=== PATIENT | male | born 1975 | race Two or more races ===

== ENCOUNTER 2025-01-27 11:56 | Inpatient (IN) | payer OTHER ==
[~2025-01-27] VITALS: Ht 167.6 cm; Wt 73.2 kg
--- NOTE | 2025-01-27 12:10 | ECG ---
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
--- NOTE | 2025-01-27 12:18 | ED.PDOC ---
History of Present Illness HPI Comments This is a 49 year old male presenting to the ED with chief complaint of headache, facial tingling, chest pressure. Patient reports that he has been experiencing a right face and headache with associated neck pain, left sided tingling, and lightheadedness for the past week. Patient relays that last week his mother had , causing a lot of stress on himself at this time. Patient denies any numbness, weakness, fall, injury. pt also reports a pressure over the chest Chief Complaint: Headache Time Seen by MD: 12:17 Reviewed Notes: Nurses Notes, Medications, Allergies Information Source: Patient Mode of Arrival: Ambulatory Severity: Moderate Timing: Weeks Duration: Since onset Prehospital treatment: None Past Medical History PAST MEDICAL HISTORY: Denies Surgical History: Denies all surgeries Family History Family History: Reviewed,noncontributory to illness Social History Smoker: Non-Smoker Alcohol: Occasionally Drugs: Denies Drug Use Lives In: Home Constitutional: denies: chills, diaphoresis, fatigue, fever, malaise, sweats, weakness, others EENTM: denies: blurred vision, double vision, ear bleeding, ear discharge, ear drainage, ear pain, ear ringing, eye pain, eye redness, hearing loss, mouth pain, mouth swelling, nasal discharge, nose bleeding, nose congestion, nose pain, photophobia, tearing, throat pain, throat swelling, voice changes, others Respiratory: denies: cough, hemoptysis, orthopnea, SOB at rest, shortness of breath, SOB with excertion, stridor, wheezing, others Cardiovascular: denies: chest pain, dizzy spells, diaphoresis, Dyspnea on exertion, edema, irregular heart beat, left arm pain, lightheadedness, palpitations, PND, syncope, others Gastrointestinal: denies: abdomen distended, abdominal pain, blood streaked bowels, constipated, diarrhea, dysphagia, difficulty swallowing, hematemesis, melena, nausea, poor appetite, poor fluid intake, rectal bleeding, rectal pain, vomiting, others Genitourinary: denies: burning, dysuria, flank pain, frequency, hematuria, incontinence, penile discharge, penile sore, pain, testicle pain, testicle swelling, urgency, others Neurological: denies: dizziness, fainting, headache, left sided numbness, left sided weakness, numbness, paresthesia, pre-existing deficit, right sided numbness, right sided weakness, seizure, speech problems, tingling, tremors, weakness, others Musculoskeletal: reports: back pain, neck pain; denies: gout, joint pain, joint swelling, muscle pain, muscle stiffness, others Integumetry: denies: bruises, change in color, change in hair/nails, dryness, laceration, lesions, lumps, rash, wounds, others Allergic/Immunocompromised: denies: Difficulty Healing, Frequent Infections, Hives, Itching, others Hematologic/Lymphatic: denies: anemia, blood clots, easy bleeding, easy bruising, swollen glands, others Endocrine: denies: excessive hunger, excessive sweating, excessive thirst, excessive urination, flushing, intolerance to cold, intolerance to heat, unexplained weight gain, unexplained weight loss, others Psychiatric: denies: anxiety, bipolar disorder, depression, hopeless, panic disorder, schizophrenia, sleepless, suicidal, others All Other Systems: Reviewed and Negative Physical Exam General Appearance: No Apparent Distress, Normal HEENT: Normal ENT Inspection, Pharynx Normal, TMs Normal Neck: Full Range of Motion, Non-Tender, Normal, Normal Inspection Respiratory: Chest Non-Tender, Lungs Clear, No Accessory Muscle Use, No Respiratory Distress, Normal Breath Sounds Cardiovascular: No Edema, No JVD, No Murmur, No Gallop, Normal Peripheral Pulses, Regular Rate/Rhythm Breast Exam: Deferred Gastrointestinal: No Organomegaly, Non Tender, No Pulsatile Mass, Normal Bowel Sounds, Soft Genitalia: Deferred Pelvic: Deferred Rectal: Deferred Extremities: No calf tenderness, Normal capillary refill, Normal inspection, Normal range of motion, Non-tender, No pedal edema Musculoskeletal : Location: Right Apperance: Tenderness (Right paracervical and trapezius tenderness) 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 Was a procedure done?: No Differential Dx Considerations may include: Acute coronary syndrome, intracranial bleed, anxiety X-Ray, Labs, Meds, VS Vital Signs Date Time Temp Pulse Resp B/P (MAP) Pulse Ox O2 Delivery O2 Flow Rate FiO2 01/27/25 12:06 74 10/6/25 11:59 98.3 98 16 134/102 78 98.3 Lab Test 01/27/25 15:12 01/27/25 14:22 Range/Units White Blood Count 10.1 4.4-10.8 10^3/uL Red Blood Count 5.23 4.5-5.90 10^6/uL Hemoglobin 16.9 13.5-17.5 g/dL Hematocrit 48.0 41.0-53.0 % Mean Corpuscular Volume 91.7 80.0-100.0 fL Mean Corpuscular Hemoglobin 32.3 H 28.0-32.0 pg Mean Corpuscular Hemoglobin Concent 35.2 32.0-36.0 g/dL Red Cell Distribution Width 13.8 11.8-14.3 % Platelet Count 283 140-450 10^3/uL Mean Platelet Volume 9.1 6.9-10.8 fL Neutrophils (%) (Auto) 66.4 37.0-80.0 % Lymphocytes (%) (Auto) 23.2 10.0-50.0 % Monocytes (%) (Auto) 8.6 0.0-12.0 % Eosinophils (%) (Auto) 1.5 0.0-7.0 % Basophils (%) (Auto) 0.3 0.0-2.0 % Neutrophils # (Auto) 6.7 1.6-8.6 10 ^3/uL Lymphocytes # (Auto) 2.4 0.4-5.4 10 ^3/uL Monocytes # (Auto) 0.9 0-1.3 10 ^3/uL Eosinophils # (Auto) 0.1 0-0.8 10 ^3/uL Basophils # (Auto) 0 0-0.2 10 ^3/uL Nucleated Red Blood Cells 0.1 % Sodium Level 143 136-145 mmol/L Potassium Level 3.9 3.5-5.1 mmol/L Chloride Level 103 98-107 mmol/L Carbon Dioxide Level 30 20-31 mmol/L Anion Gap 10 5-15 Blood Urea Nitrogen 15 9-23 mg/dL Creatinine 0.90 0.700-1.30 mg/dL Glomerular Filtration Rate Calc 104 >90 mL/min BUN/Creatinine Ratio 16.7 10.0-20.0 Serum Glucose 85 74-106 mg/dL Calcium Level 9.3 8.7-10.4 mg/dL Troponin I High Sensitivity < 3 L </=54 ng/L Urine Color Light-yellow Yellow Urine Clarity Clear Clear Urine pH 6.5 5.0-9.0 Urine Specific [place] 1.007 1.001-1.035 Urine Protein Negative Negative Urine Ketones Negative Negative Urine Blood Negative Negative /uL Urine Nitrite Negative Negative Urine Bilirubin Negative Negative Urine Urobilinogen Normal Negative mg/dL Urine Leukocyte Esterase Negative Negative /uL Urine RBC <1 0 - 3 /hpf Urine Microscopic WBC < 1 0-3 /HPF Urine Squamous Epithelial Cells None seen <5 /hpf Urine Bacteria None seen None Seen /hpf Urine Glucose Normal Normal mg/dL [place] [address] Ph: [phone] DIAGNOSTIC IMAGING Diagnostic Imaging Report : [id number] Signed PATIENT: DL QUINTEROS ACCT: [id number] UNIT: [id number] : 1975 LOC: ER ROOM / BED: / AGE / SEX: 49 / M ADM STATUS: REG ER SERVICE 1440 ORDERING PHYSICIAN: GONZALO ORDAZ MD PROCEDURE(s): HWOCT - HEAD WITHOUT CONTRAST REASON: headache ORDER NUMBER(s): [id number], ACCESSION NUMBER(s): [id number] EXAM: CT HEAD WITHOUT CONTRAST HISTORY: headache COMPARISON: None TECHNIQUE: Noncontrast axial CT images of the head were performed. Sagittal and coronal reformatted images were obtained. This CT exam was performed using 1 or more of the following dose reduction techniques: Automated exposure control, adjustment of the mA and/or kv according to patient size, or the use of iterative reconstruction techniques. Radiation Dose: CTDI volume is 53.6 mGy. Dose-length product is 1161.83 mGy*cm FINDINGS: No intracranial hemorrhage, mass, midline shift, hydrocephalus, or evidence of acute large vessel infarct. 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 The partially- visualized paranasal sinuses are clear. The bilateral mastoid air cells and middle ear spaces are clear. No cranial fracture or scalp edema. There is palatine tonsillar hypertrophy, not fully imaged here. IMPRESSION: No acute intracranial process. ATED BY: KAL PALM MD DICTATED DATE/TIME: 01/27/251517 SIGNED BY: KAL PALM MD SIGNED DATE/TIME: 01/27/251517 CC: [address] [address] Ph: [phone] DIAGNOSTIC IMAGING Diagnostic Imaging Report : [id number] Signed PATIENT: DL QUINTEROS ACCT: [id number] UNIT: [id number] : 1975 LOC: ER ROOM / BED: / AGE / SEX: 49 / M ADM STATUS: REG ER SERVICE 1440 ORDERING PHYSICIAN: GONZALO ORDAZ MD PROCEDURE(s): CXR1 - CHEST XRAY 1 VIEW REASON: cp ORDER NUMBER(s): [id number], ACCESSION NUMBER(s): [id number] CHEST RADIOGRAPH Indication: cp Technique: Single frontal view of the chest was obtained Comparison: None FINDINGS: Lines and Tubes: None Lungs: No focal consolidation. Pleura: No effusion. No pneumothorax. Cardiomediastinal contours: Unremarkable Bones: No acute osseous abnormality. IMPRESSION: No acute cardiopulmonary disease. ATED BY: NAVNEET YANG MD DICTATED DATE/TIME: 01/27/251527 SIGNED BY: NAVNEET YANG MD SIGNED DATE/TIME: 01/27/251527 CC: Images Reviewed?: Images reviewed and evaluated by me Time of 1ST Reevaluation: 13:15 Reevaluation 1ST: Unchanged Patient Education/Counseling: Diagnosis, Treatment, Prognosis, Need For Follow Up Family Education/Counseling: No Family Present Comments Although this patient has a low heart score of 2, his symptoms are suggestive of unstable angina and juice by stress. Possibly Takotsubo's syndrome. Patient will be admitted to the hospital for further evaluation due to concerns for patient's condition deteriorating, the care required my highest level of attention and readiness to intervene. i assessed the patient's condition, ordered the proper tests and treatments, reassessed for response and reviewed the results. i communicated with medical personnel and formulated a plan of care. total critical care time does not include any procedures, 55 mins Additional Information Reviewed patient's previous visit(s): None The following tests were ordered, and results were reviewed by me: EKG Additional information was gathered from interviewing the following independent historian: None I reviewed and agreed with the following test results read by other provider: None I discussed treatments and results with medical personnel and: PATIENT Comprehensive systems review obtained and negative except for what is stated in the HPI. SEPSIS Sepsis Screen Date sepsis recognized/suspect: Jan 27, 2025 Time Sepsis recognized/suspect: 1202 Recent Procedure: No On Antibiotic Therapy: No Respiratory Rate >20: No Heart Rate >90: No Temp<36 C (96.8 F) or >38.3 C: No SBP <90 or MAP <65 mmHG: No New Acute Mental Status Change: No Is the patient on CPAP, BIPAP,: No Physician Orders Head Without Contrast (01/27/25 14:40) Continuous Ekg Monitoring 08,12,16,20,00,04 (01/27/25 14:40) Electrocardigram (01/27/25 14:40) Chest Xray 1 View (01/27/25 14:40) Troponin-I Hs (01/27/25 15:40) Troponin-I Hs (01/27/25 17:40) Electrocardigram (01/27/25 15:40) Electrocardigram (01/27/25 17:40) Vital Signs Date Time Temp Pulse Resp B/P (MAP) Pulse Ox O2 Delivery O2 Flow Rate FiO2 01/27/25 12:06 74 01/27/25 11:59 98.3 98 16 134/102 78 98.3 Laboratory Tests Test 01/27/25 15:12 White Blood Count 10.1 10^3/uL (4.4-10.8) Departure 1 Departure Time of Disposition: 16:01 Impression: Primary Impression: Unstable angina Disposition: 09 ADMITTED INPATIENT Admit to: Tele Condition: Serious Discharged With: Self Critical Care Note Critical Care Time?: Yes (55 min-critical care time only) Critical care comment: due to concerns for patient's condition deteriorating, the care required my highest level of attention and readiness to intervene. i assessed the patient's condition, ordered the proper tests and treatments, reassessed for response and reviewed the results. i communicated with medical personnel and formulated a plan of care. total critical care time does not include any procedures Stability Stability form required: No Heart Score Heart Score: Heart Score Response (Comments) Value History Moderate Suspicious 1 EKG Normal 0 Age 45-64 1 Risk Factors No known risk factors 0 Troponin Normal limit 0 Total 2 I personally scribed for GONZALO ORDAZ MD ([email or web address]) on 01/27/25 at 12:18. Electronically submitted by Israel Allen ([email or web address]). I personally scribed for GONZALO ORDAZ MD ([email or web address]) on 01/27/25 at 15:55. Electronically submitted by Israel Allen ([email or web address]). GONZALO ORDAZ MD Jan 27, 2025 12:18
[2025-01-27 14:48] LABS: Urine Protein, UAD Negative (Negative)
--- NOTE | 2025-01-27 15:21 | DVH ---
EXAM: CT HEAD WITHOUT CONTRAST HISTORY: headache COMPARISON: None TECHNIQUE: Noncontrast axial CT images of the head were performed. Sagittal and coronal reformatted i mages were obtained. This CT exam was performed using 1 or more of the following dose reduction techn iques: Automated exposure control, adjustment of the mA and/or kv according to patient size, or the u se of iterative reconstruction techniques. Radiation Dose: CTDI volume is 53.6 mGy. Dose-length product is 1161.83 mGy*cm FINDINGS: No intracranial hemorrhage, mass, midline shift, hydrocephalus, or evidence of acute large vessel inf arct. 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 The partially-visualized paranasal sinuses are clear. The b ilateral mastoid air cells and middle ear spaces are clear. No cranial fracture or scalp edema. There is palatine tonsillar hypertrophy, not fully imaged here. IMPRESSION: No acute intracranial process.
[2025-01-27 15:31] LABS: Hematocrit 48.0 % (41.0-53.0); Hemoglobin 16.9 g/dL (13.5-17.5); Mean Corpuscular Hemoglobin 32.3 pg (28.0-32.0); Mean Corpuscular Volume 91.7 fL (80.0-100.0); Nucleated Red Blood Cells % 0.1 %
--- NOTE | 2025-01-27 15:31 | DVH ---
CHEST RADIOGRAPH Indication: cp Technique: Single frontal view of the chest was obtained Comparison: None FINDINGS: Lines and Tubes: None Lungs: No focal consolidation. Pleura: No effusion. No pneumothorax. Cardiomediastinal contours: Unremarkable Bones: No acute osseous abnormality. IMPRESSION: No acute cardiopulmonary disease.
[2025-01-27 15:38] LABS: Chloride 103 mmol/L (98-107); Potassium 3.9 mmol/L (3.5-5.1); Sodium 143 mmol/L (136-145)
[2025-01-27 15:39] LABS: Anion Gap 10 (5-15); Carbon Dioxide 30 mmol/L (20-31)
[2025-01-27 15:40] LABS: Calcium 9.3 mg/dL (8.7-10.4)
[2025-01-27 15:44] LABS: BUN/Creatinine Ratio 16.7 (10.0-20.0); Blood Urea Nitrogen 15 mg/dL (9-23); Glucose 85 mg/dL (74-106)
--- NOTE | 2025-01-27 20:13 | DVHHPRES ---
History of Present Illness Resident Creating Document: ARIANA WOODSON RESIDENT History of Present Illness This is a 49-year-old male with past medical history of hypertriglyceridemia, managed with lifestyle changes, presented to the ER with chief complain of headache and dizziness since last 7 days. He describes headache as 7/10, pressure-like, in right parietal area, radiating to the occipital area. He complains of associated left side tingling sensation going from his face down to his legs. He also complains of dizziness, described as lightheadedness and feeling of passing out, associated with palpitations. He denies loss of consciousness or dizziness association with changing positions. He denies fever, chills, neck pain or rigidity. PMHx: Hypertriglyceridemia with triglyceride 500 last year, managed with lifestyle changes PSHx: No significant surgical history Social history: Drinks 2 beers daily. Denies smoking, recreational drug use. Lives in home with family. Full code, next of kin a spouse Home medication: No home medications Allergic history: No known allergies The patient was examined at bedside today. Review of Systems Review of Systems ROS: Constitutional: Denies weight loss, fever and chills. HEENT: Denies changes in vision and hearing. Respiratory: Denies shortness of breath and cough Cardiovascular: Denies chest discomfort or palpitations GI: Denies abdominal pain, nausea, vomiting and diarrhea. : Denies dysuria and urinary frequency. Musculoskeletal: Denies myalgias and joint pain Skin: Denies rash and pruritus. Neurological: Headache, dizziness, tingling on left side of body Allergies: Coded Allergies: NO KNOWN ALLERGIES (Unverified , 01/27/25) Exam Vital Signs Vital Signs Date Time Temp Pulse Resp B/P (MAP) Pulse Ox O2 Delivery O2 Flow Rate FiO2 01/27/25 17:11 98.1 68 18 132/76 (94) 98 98.1 01/27/25 17:11 Room Air Exam General: Patient alert and oriented in person, place and time. Patient following commands. HEENT: Normocephalic, atraumatic, moist mucous membranes Respiratory/pulmonary: Clear lungs bilaterally, vesicular murmurs present in almost all lung salas, no associated crackles or wheezes. Cardiovascular: Normal heart sounds S1 and S2 with no associated murmurs Abdomen: Abdomen nondistended, there is no pain to palpation in any of the abdominal quadrants, no palpable masses. Extremities: There is no peripheral edema present at the lower extremities. Peripheral Pulses: 3+ Radial (R). 3+ Radial (L). 3+ Dorsalis pedis (R). 3+ Dorsalis pedis(L) Skin: No rashes or pruritus, there is no sacral edema present at this time. Neurological: Intact cranial nerves with no focal neurologic deficits. Normal motor and sensory strength on bilateral extremities. No meningeal signs. Labs/Xrays Labs Test 01/27/25 16:14 01/27/25 15:12 01/27/25 14:22 Range/Units Troponin I High Sensitivity < 3 L </=54 ng/L White Blood Count 10.1 4.4-10.8 10^3/uL Red Blood Count 5.23 4.5-5.90 10^6/uL Hemoglobin 16.9 13.5-17.5 g/dL Hematocrit 48.0 41.0-53.0 % Mean Corpuscular Volume 91.7 80.0-100.0 fL Mean Corpuscular Hemoglobin 32.3 H 28.0-32.0 pg Mean Corpuscular Hemoglobin Concent 35.2 32.0-36.0 g/dL Red Cell Distribution Width 13.8 11.8-14.3 % Platelet Count 283 140-450 10^3/uL Mean Platelet Volume 9.1 6.9-10.8 fL Neutrophils (%) (Auto) 66.4 37.0-80.0 % Lymphocytes (%) (Auto) 23.2 10.0-50.0 % Monocytes (%) (Auto) 8.6 0.0-12.0 % Eosinophils (%) (Auto) 1.5 0.0-7.0 % Basophils (%) (Auto) 0.3 0.0-2.0 % Neutrophils # (Auto) 6.7 1.6-8.6 10 ^3/uL Lymphocytes # (Auto) 2.4 0.4-5.4 10 ^3/uL Monocytes # (Auto) 0.9 0-1.3 10 ^3/uL Eosinophils # (Auto) 0.1 0-0.8 10 ^3/uL Basophils # (Auto) 0 0-0.2 10 ^3/uL Nucleated Red Blood Cells 0.1 % Sodium Level 143 136-145 mmol/L Potassium Level 3.9 3.5-5.1 mmol/L Chloride Level 103 98-107 mmol/L Carbon Dioxide Level 30 20-31 mmol/L Anion Gap 10 5-15 Blood Urea Nitrogen 15 9-23 mg/dL Creatinine 0.90 0.700-1.30 mg/dL Glomerular Filtration Rate Calc 104 >90 mL/min BUN/Creatinine Ratio 16.7 10.0-20.0 Serum Glucose 85 74-106 mg/dL Calcium Level 9.3 8.7-10.4 mg/dL Urine Color Light-yellow Yellow Urine Clarity Clear Clear Urine pH 6.5 5.0-9.0 Urine Specific [place] 1.007 1.001-1.035 Urine Protein Negative Negative Urine Ketones Negative Negative Urine Blood Negative Negative /uL Urine Nitrite Negative Negative Urine Bilirubin Negative Negative Urine Urobilinogen Normal Negative mg/dL Urine Leukocyte Esterase Negative Negative /uL Urine RBC <1 0 - 3 /hpf Urine Microscopic WBC < 1 0-3 /HPF Urine Squamous Epithelial Cells None seen <5 /hpf Urine Bacteria None seen None Seen /hpf Urine Glucose Normal Normal mg/dL SEPSIS Sepsis Screen Date sepsis recognized/suspect: Jan 27, 2025 Time Sepsis recognized/suspect: 1710 Recent Procedure: No On Antibiotic Therapy: No Respiratory Rate >20: No Heart Rate >90: No Temp<36 C (96.8 F) or >38.3 C: No SBP <90 or MAP <65 mmHG: No New Acute Mental Status Change: No Is the patient on CPAP, BIPAP,: No Physician Orders Head Without Contrast (01/27/25 14:40) Continuous Ekg Monitoring 08,12,16,20,00,04 (01/27/25 14:40) Electrocardigram (01/27/25 14:40) Chest Xray 1 View (01/27/25 14:40) Electrocardigram (01/27/25 15:40) Electrocardigram (01/27/25 17:40) Vital Signs Date Time Temp Pulse Resp B/P (MAP) Pulse Ox O2 Delivery O2 Flow Rate FiO2 01/27/25 17:11 98.1 68 18 132/76 (94) 98 98.1 01/27/25 17:11 68 18 98 Room Air 01/27/25 12:06 74 Laboratory Tests Test 01/27/25 15:12 White Blood Count 10.1 10^3/uL (4.4-10.8) Assessment/Plan Assessment/Plan Presyncope, rule out cardiac causes Ruled out hemorrhagic stroke BNP ordered, holding off echocardiogram Orthostatic Vitals ordered EKG shows sinus rhythm with short NM interval, abnormal inferior Q-waves, troponin negative Head CT shows no acute intracranial process. CXR shows no acute cardiopulmonary disease. Monitor on telemetry for life-threatening arrhythmias Hyperlipidemia ASCVD less than 5%, no statin indicated at this time Transaminitis Borderline elevated ALT, monitor clinically Advised Lifestyle changes and weight loss Vitamin-D deficiency Supplemented DIET: Cardiac DVT PROPHYLAXIS: Lovenox GI PROPHYLAXIS: Protonix CODE STATUS: Goals of care discussed with patient at bedside for more than 36 minutes. Full code DISPOSITION: Telemetry Patient's status and plan discussed with the patient. Case discussed with Dr. King Plan discussed with: Patient, Other (Nurses) Date of Service: Jan 27, 2025 Billing Provider: ROXIE KING MD Common Visit Codes: 75119-[id number] INP/OBS CARE (HIGH) Secondary Visit Codes: 40234-[id number] CARE PLAN 30 MINUTES ARIANA WOODSON RESIDENT Jan 27, 2025 20:13 ALLYSSA MCCLENDON RESIDENT Jan 28, 2025 02:25
[2025-01-27 20:54] LABS: Albumin 4.8 g/dL (3.2-4.8); Alkaline Phosphatase 76.0 U/L (46-116); Bilirubin, Direct 0.1 mg/dL (<0.3); Magnesium 2.1 mg/dL (1.6-2.6); Total Protein 7.9 g/dL (5.7-8.2)
[2025-01-27 20:55] LABS: Bilirubin, Total 0.7 mg/dL (0.2-1.0)
[2025-01-27 21:02] LABS: INR 1.0 (0.9-1.15); Partial Thromboplastin Time 30.2 SEC (24.5-34.5); Prothrombin Time 10.6 sec (9.3-11.8)
[2025-01-27 21:13] LABS: Alanine Aminotransferase 41.0 U/L (7-40); Cholesterol 232.0 mg/dL (< 200); HDL Cholesterol 64.0 mg/dL (40-59); Triglycerides 257.0 mg/dL (< 150)
[2025-01-27 21:26] LABS: Lipase 47.0 U/L (12-53)
[2025-01-27] MEDS ORDERED: ACETAMINOPHEN 325 MG TAB PO PRN (21:45)
[2025-01-27] MEDS ORDERED: MORPHINE SULFATE INJ 2 MG/ml SYRG IV PRN (21:45)
[2025-01-27] MEDS ORDERED: SODIUM CHLORIDE 0.9% 1,000 ML IV SCH (21:45)
[2025-01-27] MEDS ORDERED: ONDANSETRON HCL 4 MG/2 ML VIAL IV PRN (21:45)
[2025-01-27 23:29] LABS: Cannabinoid Screen, Urine Neg (NEGATIVE)
[2025-01-27 23:36] LABS: Amphetamine Screen, Urine Neg (NEGATIVE); Barbiturate Scree,Urine Neg (NEGATIVE); Benzodiazephine Screen, Urine Neg (NEGATIVE); Cocaine Screen, Urine Neg (NEGATIVE); Opiate Scree,Urine Neg (NEGATIVE); Phencyclidine Screen, Urine Neg (NEGATIVE)
[2025-01-27] MEDS: ERGOCALCIFEROL 50,000 UNIT(1.25MG) CAP PO SCH (23:40)
[2025-01-27] MEDS: PANTOPRAZOLE 40 MG TAB PO SCH (23:40)
[2025-01-27] MEDS: ENOXAPARIN SOD 40 MG/0.4 ML SYRINGE SC SCH (23:41)
[2025-01-27 23:50] VITALS: BP 123/83; PULSE 56; PULSE 86; RESP 18; TEMP 97.9; O2SAT 94; O2SAT 97
[2025-01-28 02:30] VITALS: BP 105/77; PULSE 57; RESP 16; TEMP 97.5; O2SAT 98
[2025-01-28 05:00] VITALS: BP 106/73; PULSE 64; RESP 14; TEMP 97.2; O2SAT 97
[2025-01-28 05:46] LABS: Hematocrit 49.5 % (41.0-53.0); Hemoglobin 17.3 g/dL (13.5-17.5); Mean Corpuscular Hemoglobin 31.8 pg (28.0-32.0); Mean Corpuscular Volume 91.1 fL (80.0-100.0); Nucleated Red Blood Cells % 0.2 %
[2025-01-28 06:00] LABS: Alanine Aminotransferase 37 U/L (7-40); Albumin 4.3 g/dL (3.2-4.8); Alkaline Phosphatase 64 U/L (46-116); Anion Gap 11 (5-15); BUN/Creatinine Ratio 13.8 (10.0-20.0); Blood Urea Nitrogen 11 mg/dL (9-23); Calcium 9.3 mg/dL (8.7-10.4); Carbon Dioxide 27 mmol/L (20-31); Chloride 103 mmol/L (98-107); Glucose 101 mg/dL (74-106); Potassium 4.0 mmol/L (3.5-5.1); Sodium 141 mmol/L (136-145); Total Protein 7.2 g/dL (5.7-8.2)
[2025-01-28 06:03] LABS: Bilirubin, Total 1.3 mg/dL (0.2-1.0)
[2025-01-28 08:00] VITALS: PULSE 57; PULSE 61; RESP 18; O2SAT 96
[2025-01-28 09:00] VITALS: BP 114/82; PULSE 57; RESP 18; TEMP 97.7; O2SAT 96
[2025-01-28 12:37] VITALS: BP 112/86; PULSE 64; RESP 16; TEMP 97.7; O2SAT 95
[2025-01-28] MEDS ORDERED: ERGO1CAP23 PO (13:08)
--- NOTE | 2025-01-28 17:41 | DVHDSRES ---
Discharge Summary Date of Admission Resident Creating Document: DONOVAN OWEN RESIDENT Jan 27, 2025 at 21:32 Date of Discharge: Jan 28, 2025 Admitting Diagnosis headache and dizziness Labs/Diagnostic Data: Laboratory Results Test 01/28/25 05:26 01/27/25 16:14 01/27/25 15:12 01/27/25 14:22 White Blood Count 8.7 10^3/uL (4.4-10.8) Red Blood Count 5.43 10^6/uL (4.5-5.90) Hemoglobin 17.3 g/dL (13.5-17.5) Hematocrit 49.5 % (41.0-53.0) Mean Corpuscular Volume 91.1 fL (80.0-100.0) Mean Corpuscular Hemoglobin 31.8 pg (28.0-32.0) Mean Corpuscular Hemoglobin Concent 34.9 g/dL (32.0-36.0) Red Cell Distribution Width 13.5 % (11.8-14.3) Platelet Count 283 10^3/uL (140-450) Mean Platelet Volume 9.0 fL (6.9-10.8) Neutrophils (%) (Auto) 59.5 % (37.0-80.0) Lymphocytes (%) (Auto) 28.5 % (10.0-50.0) Monocytes (%) (Auto) 8.9 % (0.0-12.0) Eosinophils (%) (Auto) 2.8 % (0.0-7.0) Basophils (%) (Auto) 0.3 % (0.0-2.0) Neutrophils # (Auto) 5.2 10 ^3/uL (1.6-8.6) Lymphocytes # (Auto) 2.5 10 ^3/uL (0.4-5.4) Monocytes # (Auto) 0.8 10 ^3/uL (0-1.3) Eosinophils # (Auto) 0.2 10 ^3/uL (0-0.8) Basophils # (Auto) 0 10 ^3/uL (0-0.2) Nucleated Red Blood Cells 0.2 % Sodium Level 141 mmol/L (136-145) Potassium Level 4.0 mmol/L (3.5-5.1) Chloride Level 103 mmol/L (98-107) Carbon Dioxide Level 27 mmol/L (20-31) Anion Gap 11 (5-15) Blood Urea Nitrogen 11 mg/dL (9-23) Creatinine 0.80 mg/dL (0.700-1.30) Glomerular Filtration Rate Calc 108 mL/min (>90) BUN/Creatinine Ratio 13.8 (10.0-20.0) Serum Glucose 101 mg/dL (74-106) Calcium Level 9.3 mg/dL (8.7-10.4) Total Bilirubin 1.3 mg/dL (0.2-1.0) Aspartate Amino Transferase (AST) 30 U/L (13-40) Alanine Aminotransferase (ALT) 37 U/L (7-40) Alkaline Phosphatase 64 U/L (46-116) B-Type Natriuretic Peptide 2.53 pg/mL (0-100) Total Protein 7.2 g/dL (5.7-8.2) Albumin 4.3 g/dL (3.2-4.8) Troponin I High Sensitivity < 3 ng/L (</=54) Vitamin B12 Level 474 pg/mL (211-911) Vitamin D 25-Hydroxy 21.0 ng/mL (30.0-100) Prothrombin Time 10.6 sec (9.3-11.8) Prothrombin Time INR 1.00 (0.9-1.15) Activated Partial Thromboplast Time 30.2 SEC (24.5-34.5) Hemoglobin A1c 5.6 % A1C (<5.7) Phosphorus Level 4.1 mg/dL (2.4-5.1) Magnesium Level 2.1 mg/dL (1.6-2.6) Direct Bilirubin 0.1 mg/dL (<0.3) C-Reactive Protein High Sensitivity 0.06 mg/dL (<1.0) Triglycerides Level 257 mg/dL (< 150) Cholesterol Level 232 mg/dL (< 200) LDL Cholesterol 138 mg/dL (< 100) HDL Cholesterol 64 mg/dL (40-59) Lipase 47 U/L (12-53) Thyroid Stimulating Hormone (TSH) 1.58 uIU/mL (0.55-4.78) Urine Color Light-yellow (Yellow) Urine Clarity Clear (Clear) Urine pH 6.5 (5.0-9.0) Urine Specific Hope 1.007 (1.001-1.035) Urine Protein Negative (Negative) Urine Ketones Negative (Negative) Urine Blood Negative /uL (Negative) Urine Nitrite Negative (Negative) Urine Bilirubin Negative (Negative) Urine Urobilinogen Normal mg/dL (Negative) Urine Leukocyte Esterase Negative /uL (Negative) Urine RBC <1 /hpf (0 - 3) Urine Microscopic WBC < 1 /HPF (0-3) Urine Squamous Epithelial Cells None seen /hpf (<5) Urine Bacteria None seen /hpf (None Seen) Urine Glucose Normal mg/dL (Normal) Urine Opiates Screen Neg (NEGATIVE) Urine Fentanyl Screen Neg (NEGATIVE) Urine Barbiturates Screen Neg (NEGATIVE) Urine Phencyclidine Screen Neg (NEGATIVE) Urine Amphetamines Screen Neg (NEGATIVE) Urine Benzodiazepines Screen Neg (NEGATIVE) Urine Cocaine Screen Neg (NEGATIVE) Urine Cannabinoids Screen Neg (NEGATIVE) Other Laboratory Tests 01/28/25 05:26 Brief Hx & Hospital Course: Dl Quinteros is a 49-year-old male with a past medical history of hypertriglyceridemia (TG 500 last year, managed with lifestyle changes) who presented to the ER with headache and dizziness that began one week ago, shortly after his mother . The headache was described as pressure-like, rated 7/10, located in the right parietal region and radiating to the occipital area. Associated symptoms included left-sided tingling from the face down to the legs, lightheadedness, palpitations, and a sensation of near-syncope. He denied loss of consciousness, positional dizziness, fever, chills, neck pain, or rigidity. On examination, the patient was alert and oriented, with intact cranial nerves and no focal neurological deficits. Cardiopulmonary and abdominal exams were unremarkable. No peripheral edema was noted, and pulses were 3+ bilaterally. CT head without contrast showed no acute intracranial process, no hemorrhage, mass, infarct, or hydrocephalus. Chest X-ray revealed no acute cardiopulmonary disease, with clear lungs and normal cardiac silhouette. EKG showed sinus rhythm, short CT interval, low voltage in precordial leads, and abnormal inferior Q waves. On evaluation today, he states he is well, pain is manageable. His vitals have remained stable for discharge home, follow up visit in discharge clinic. All medications and recommendations were thoroughly explained and the patient states he understands and agrees. Detailed discussion held with patient at bedside were all questions were answered and concerns were addressed. He was discharged with a prescription for Ergocalciferol (Vitamin D 50,000 IU) PO weekly for 90 days. Exam General: Patient alert and oriented in person, place and time. Patient following commands. HEENT: Normocephalic, atraumatic, moist mucous membranes Respiratory/pulmonary: Clear lungs bilaterally, vesicular murmurs present in almost all lung salas, no associated crackles or wheezes. Cardiovascular: Normal heart sounds S1 and S2 with no associated murmurs Abdomen: Abdomen nondistended, there is no pain to palpation in any of the abdominal quadrants, no palpable masses. Extremities: There is no peripheral edema present at the lower extremities. Peripheral Pulses: 3+ Radial (R). 3+ Radial (L). 3+ Dorsalis pedis (R). 3+ Dorsalis pedis(L) Skin: No rashes or pruritus, there is no sacral edema present at this time. Neurological: Intact cranial nerves with no focal neurologic deficits. Normal motor and sensory strength on bilateral extremities. No meningeal signs. Operations or Procedures PATIENT: DL QUINTEROS ACCT: [id number] UNIT: [id number] : 1975 LOC: ER ROOM / BED: / AGE / SEX: 49 / M ADM STATUS: REG ER SERVICE 1440 ORDERING PHYSICIAN: GONZALO ORDAZ MD PROCEDURE(s): HWOCT - HEAD WITHOUT CONTRAST REASON: headache ORDER NUMBER(s): [id number], ACCESSION NUMBER(s): [id number] EXAM: CT HEAD WITHOUT CONTRAST HISTORY: headache COMPARISON: None TECHNIQUE: Noncontrast axial CT images of the head were performed. Sagittal and coronal reformatted images were obtained. This CT exam was performed using 1 or more of the following dose reduction techniques: Automated exposure control, adjustment of the mA and/or kv according to patient size, or the use of iterative reconstruction techniques. Radiation Dose: CTDI volume is 53.6 mGy. Dose-length product is 1161.83 mGy*cm FINDINGS: No intracranial hemorrhage, mass, midline shift, hydrocephalus, or evidence of acute large vessel infarct. 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 The partially- visualized paranasal sinuses are clear. The bilateral mastoid air cells and middle ear spaces are clear. No cranial fracture or scalp edema. There is palatine tonsillar hypertrophy, not fully imaged here. IMPRESSION: No acute intracranial process. ------- PATIENT: DL QUINTEROS ACCT: [id number] UNIT: [id number] : 1975 LOC: ER ROOM / BED: / AGE / SEX: 49 / M ADM STATUS: REG ER SERVICE 1440 ORDERING PHYSICIAN: GONZALO ORDAZ MD PROCEDURE(s): CXR1 - CHEST XRAY 1 VIEW REASON: cp ORDER NUMBER(s): [id number], ACCESSION NUMBER(s): [id number] Indication: cp Technique: Single frontal view of the chest was obtained Comparison: None FINDINGS: Lines and Tubes: None Lungs: No focal consolidation. Pleura: No effusion. No pneumothorax. Cardiomediastinal contours: Unremarkable Bones: No acute osseous abnormality. IMPRESSION: No acute cardiopulmonary disease. 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 - ------ Condition at Discharge: Stable Final Diagnosis/Problems List Anxiety disorder, likely panic attack Uncomplicated grief Presyncope, rule out cardiac causes Ruled out hemorrhagic stroke Hyperlipidemia Transaminitis Vitamin-D deficiency Discharge Disposition: Home Discharge Instruct/Medications Diet: Regular Activity: No Restrictions, As Tolerated Follow Up/Referral: Follow up with PCP in 1 week Medications: New Prescriptions: Ergocalciferol (Vitamin D 89511 Unit) PO We 90 Days #12 CAP Scheduled Ergocalciferol (Vitamin D 33278 Unit), 50,000 UNIT PO We Discharge Statement: "Patient was advised to return to the ER or call 911 if any headaches, dizziness, shortness of breath, chest pain, abdominal pain, bleeding, fevers, or worsening of medical condition. Patient was counseled about treatment plan, medications, possible side effects, patientverbalized understanding. All questions were answered to the best of my ability. This discharge took greater then 30 minutes in planning, reviewing documentation, counseling the patient, and discussing with other team members." ASSESSMENT ASSESSMENT Assessment Presyncope, rule out cardiac causes Ruled out hemorrhagic stroke Hyperlipidemia Transaminitis Vitamin-D deficiency Date of Service: Jan 28, 2025 Billing Provider: JAILYN GLASS MD Common Visit Codes: 08787-RSB/OBS DISCH DAY >30min DONOVAN OWEN RESIDENT Jan 28, 2025 17:41 MCKENZIE GIVENS RESIDENT Jan 29, 2025 07:12 JAILYN GLASS MD Feb 01, 2025 20:40
--- NOTE | 2025-01-29 11:06 | ECG ---
[facility] Test Date: 2025-01-28 Test Time: 09:55:17 Pat Name: DL QUINTEROS Department: Respiratoy Room: 0240T A Gender: M X Ray Technician: MARLENE : 1975 Requested By: DONOVAN YOU Order Number: [id number] Reading MD: Gagan Cary Measurements Intervals [place] Rate: 69 P: 23 CO: 148 QRS: 27 QRSD: 85 T: 23 QT: 391 QTc: 419 Interpretive Statements Sinus rhythm Electronically Signed On 02-01-2025 19:40:05 PDT by Gagan Cary Please click the below link to view image of tracing.
== END 2025-01-28 16:20 | disposition home or self-care (01) | DRG 880 ==
LOC: ER 11:56 → OVERFLOW 21:32 → TELE-EAST 01-28 02:15
PROVIDERS: ADMIT Internal Medicine Geriatric Medicine; ATTEND Internal Medicine Geriatric Medicine
DX: F41.0 Panic disorder [episodic paroxysmal anxiety] (principal); E78.1 Pure hyperglyceridemia; E78.5 Hyperlipidemia, unspecified; R74.01 Elevation of levels of liver transaminase levels; E55.9 Vitamin D deficiency, unspecified
CPT/HCPCS: 36415; 70450; 71045; 80048; 80053; 80061; 80076; 80307; 81001; 82306; 82607; 83036; 83690; 83735; 83880; 84100; 84443; 84484; 85025; 85610; 85730; 86141; 93005; 99291; G0378